=== PATIENT | male | born 1985 | race Caucasian/White ===

== ENCOUNTER → 2016-11-06 | Outpatient (CLI) | payer MEDICARE | LOC: US 13:45 | DX: M79.604 Pain in right leg (principal) | CPT/HCPCS: 93971 ==

== ENCOUNTER → 2017-01-16 | Outpatient (CLI) | payer MEDICARE | LOC: KOH-I 01-11 13:00 | DX: G44.52 New daily persistent headache (NDPH) (principal) | CPT/HCPCS: 70450 ==